=== PATIENT | female | born 1940 | race Caucasian/White ===

== ENCOUNTER 2017-11-02 17:40 | Inpatient (IN) | payer OTHER ==
[~2017-11-02] VITALS: Ht 160 cm; Wt 72.0 kg
[2017-11-02 19:13] LABS: BASOPHIL (%) 0.8 % (0-1); BASOPHIL COUNT 0.1 K/uL (0-0.1); EOSINOPHIL (%) 0.6 % (0-5); EOSINOPHIL COUNT 0.1 K/uL (0-0.3); HEMATOCRIT 38.7 % (36.0-46.0); HEMOGLOBIN 14.3 G/DL (11.9-15.5); IMMATURE GRANULOCYTE (%) 0.6 % (0.0-0.7); LYMPHOCYTE (%) 20.6 % (15-42); LYMPHOCYTE COUNT 2.5 K/uL (1.0-2.8); MCH 32.9 PG (29.0-34.0); MCV 89.2 FL (83-99); MONOCYTE (%) 7.8 % (3-12); MONOCYTE COUNT 0.9 K/uL (0-0.8); NEUTROPHIL (%) 69.6 % (45-76); NEUTROPHIL COUNT 8.4 K/uL (1.8-6.4); PLATELET COUNT 168 K/uL (156-360); RBC DIS.WIDTH-CV 12.7 % (11.8-14.6); RBC DIS.WIDTH-SD 41.1 % (39-53); RED BLOOD COUNT 4.34 M/uL (3.80-5.20)
[2017-11-02 19:25] LABS: CHLORIDE 100 mEq/L (99-109)
[2017-11-02 19:26] LABS: POTASSIUM 3.2 mEq/L (3.7-5.4); SODIUM 135 mEq/L (136-147)
[2017-11-02 19:28] LABS: GLUCOSE 278 mg/dL (70-99); TOTAL PROTEIN 7.8 g/dL (6.4-8.3)
[2017-11-02 19:30] LABS: TOTAL BILIRUBIN 0.7 mg/dL (0.0-1.0)
[2017-11-02 19:31] LABS: ALKALINE PHOSPHATASE 107 IU/L (3-129)
[2017-11-02 19:32] LABS: GFR ESTIMATE (CALCULATED) 58 mL/min/
[2017-11-02 19:33] LABS: AST (GOT) 27 IU/L (2-34); UREA NITROGEN (BUN) 19 mg/dL (9-23)
[2017-11-02 19:34] LABS: ALT (GPT) 30 IU/L (3-49)
[2017-11-02 19:35] LABS: LIPASE 43 U/L (1.0-51.0)
[2017-11-02 19:37] LABS: TROP-I INTERPRETATION NEGATIVE; TROPONIN-I 0.01 ng/mL (0.0-0.30)
[2017-11-02 20:10] LABS: APPEARANCE CLOUDY ((CLEAR)); BILIRUBIN NEGATIVE; BLOOD SMALL; COLOR AMBER ((YELLOW)); GLUCOSE (STRIP) >=500; KETONES NEGATIVE; LEUKOCYTES LARGE; NITRITE POSITIVE; PROTEIN (STRIP) 30; SPECIFIC GRAVITY 1.015 (1.000-1.030); UROBILINOGEN 0.2 MG/DL (0.2-1.0)
[2017-11-02 20:44] LABS: WHITE BLOOD CELLS TNTC /HPF (0-5)
[2017-11-02 20:45] LABS: BACTERIA 2+ /HPF; EPITHELIAL CELLS 2+ /HPF; MUCUS NONE SEEN /LPF; UCUL ADDED? YES
[2017-11-02 22:30] LABS: CREATINE KINASE 120 IU/L (1-294)
[2017-11-03 00:49] VITALS: BP 142/76
[2017-11-03 06:20] LABS: CHLORIDE 106 MEQ/L (99-109); CREATININE 0.7 MG/DL (0.6-1.3); GFR ESTIMATE (CALCULATED) > 59 mL/min/; GLUCOSE 189 mg/dL (70-99); HEMATOCRIT 34.1 % (36.0-46.0); MCH 31.9 PG (29.0-34.0); MCHC 34.9 G/DL (30.0-36.0); MCV 91.4 FL (83-99); PLATELET COUNT 141 K/uL (156-360); POTASSIUM 3.6 MEQ/L (3.7-5.4); RBC DIS.WIDTH-CV 12.9 % (11.8-14.6); RBC DIS.WIDTH-SD 42.5 % (39-53); RED BLOOD COUNT 3.73 M/uL (3.80-5.20); SODIUM 139 MEQ/L (136-147); UREA NITROGEN (BUN) 14 mg/dL (9-23); WHITE BLOOD COUNT 9.2 K/uL (4.1-10.2)
[2017-11-03 06:21] LABS: BASOPHIL COUNT 0.1 K/uL (0-0.1); EOSINOPHIL (%) 1.5 % (0-5); EOSINOPHIL COUNT 0.1 K/uL (0-0.3); IMMATURE GRANULOCYTE (%) 0.3 % (0.0-0.7); LYMPHOCYTE COUNT 3.2 K/uL (1.0-2.8); MONOCYTE (%) 10.9 % (3-12); NEUTROPHIL (%) 51.3 % (45-76); NEUTROPHIL COUNT 4.7 K/uL (1.8-6.4)
[2017-11-03 06:23] LABS: HEMOGLOBIN 11.9 G/DL (11.9-15.5)
[2017-11-03 07:37] VITALS: BP 126/60
[2017-11-03 11:23] LABS: HEMOGLOBIN A1c (GLYCOHEMOGLOB) 8.3 % (Below 5.7)
[2017-11-03 13:15] LABS: POTASSIUM 3.3 MEQ/L (3.7-5.4)
[2017-11-03 16:18] LABS: THYROTROPIN (TSH) 3.6 MIU/L (0.4-5.5)
[2017-11-04 00:19] VITALS: BP 140/58
[2017-11-04 12:04] LABS: FOLIC ACID (FOLATE) 2.4 NG/ML (5.0-22.0)
[2017-11-04 13:49] LABS: C DIFF TOXIN NEGATIVE (NEGATIVE)
[2017-11-05 00:01] VITALS: BP 153/63
[2017-11-05 07:42] VITALS: BP 125/62
[2017-11-05 23:41] VITALS: BP 128/66
[2017-11-06 07:51] VITALS: BP 158/72
[2017-11-06 15:26] VITALS: BP 122/59
[2017-11-06 23:41] VITALS: BP 133/63
[2017-11-07 08:00] VITALS: BP 126/65
[2017-11-07 14:00] LABS: BASOPHIL (%) 0.8 % (0-1); BASOPHIL COUNT 0.1 K/uL (0-0.1); EOSINOPHIL (%) 1.5 % (0-5); EOSINOPHIL COUNT 0.2 K/uL (0-0.3); HEMATOCRIT 36.3 % (36.0-46.0); HEMOGLOBIN 12.9 G/DL (11.9-15.5); IMMATURE GRANULOCYTE (%) 0.2 % (0.0-0.7); LYMPHOCYTE (%) 21.4 % (15-42); LYMPHOCYTE COUNT 2.6 K/uL (1.0-2.8); MCH 32.6 PG (29.0-34.0); MCHC 35.5 G/DL (30.0-36.0); MCV 91.7 FL (83-99); MONOCYTE (%) 6.8 % (3-12); MONOCYTE COUNT 0.8 K/uL (0-0.8); NEUTROPHIL (%) 69.3 % (45-76); NEUTROPHIL COUNT 8.4 K/uL (1.8-6.4); NRBC (%) 0.3 /100 WBC (0-0); RBC DIS.WIDTH-CV 13.2 % (11.8-14.6); RBC DIS.WIDTH-SD 44.4 % (39-53); RED BLOOD COUNT 3.96 M/uL (3.80-5.20); WHITE BLOOD COUNT 12.1 K/uL (4.1-10.2)
[2017-11-07 14:03] LABS: PLATELET COUNT 186 K/uL (156-360)
[2017-11-07 14:36] LABS: CHLORIDE 103 MEQ/L (99-109); CREATININE 0.8 MG/DL (0.6-1.3); GFR ESTIMATE (CALCULATED) > 59 mL/min/; GLUCOSE 163 mg/dL (70-99); SODIUM 140 MEQ/L (136-147); UREA NITROGEN (BUN) 17 mg/dL (9-23)
[2017-11-07 15:56] VITALS: BP 130/68
[2017-11-08 23:50] VITALS: BP 138/64
[2017-11-09 15:20] VITALS: BP 133/64
[2017-11-09 16:33] LABS: CHLORIDE 103 MEQ/L (99-109); CREATININE 0.7 MG/DL (0.6-1.3); GFR ESTIMATE (CALCULATED) > 59 mL/min/; GLUCOSE 137 mg/dL (70-99); POTASSIUM 3.4 MEQ/L (3.7-5.4); SODIUM 139 MEQ/L (136-147); UREA NITROGEN (BUN) 17 mg/dL (9-23)
[2017-11-11 23:21] VITALS: BP 130/87
[2017-11-12 07:31] VITALS: BP 143/62
[2017-11-12 16:55] VITALS: BP 120/68
[2017-11-12 23:52] VITALS: BP 115/56
[2017-11-13 07:55] VITALS: BP 134/63
[2017-11-13 16:02] VITALS: BP 142/63
[2017-11-13 23:31] VITALS: BP 138/60
[2017-11-14] MEDS ORDERED: GLIPIZIDE5 MG PO (14:01)
[2017-11-14] MEDS ORDERED: RISPERDAL2 MG PO (14:01)
[2017-11-14] MEDS ORDERED: FOLIC ACID1 MG PO (14:01)
[2017-11-14] MEDS ORDERED: METFORMIN HCL500 MG PO (14:01)
[2017-11-14 23:58] VITALS: BP 140/60
[2017-11-15 07:34] VITALS: BP 120/63
[2017-11-15 16:17] VITALS: BP 126/71
== END 2017-11-15 19:34 | DRG 689 ==
LOC: EME 17:40 → 5SOUTH 22:38 → EDOF 22:38 → ENRESERV 22:43 → EDOF 11-03 00:14 → 5SOUTH 11-03 00:15
PROVIDERS: Emergency Medicine; Hospitalist; Internal Medicine; Physician Assistant
PROC: 0HBRXZZ Excision of Toe Nail, External Approach (ICD-10-PCS; principal; 2017-11-02)
DX: N39.0 Urinary tract infection, site not specified (principal); G93.40 Encephalopathy, unspecified; E86.0 Dehydration; L60.2 Onychogryphosis; F25.9 Schizoaffective disorder, unspecified; R62.7 Adult failure to thrive; B96.20 Unspecified Escherichia coli [E. coli] as the cause of diseases classified elsewhere; F42.3 Hoarding disorder; E87.6 Hypokalemia; E87.2 Acidosis; E87.5 Hyperkalemia; L89.90 Pressure ulcer of unspecified site, unspecified stage; E11.51 Type 2 diabetes mellitus with diabetic peripheral angiopathy without gangrene; E11.65 Type 2 diabetes mellitus with hyperglycemia; H54.7 Unspecified visual loss; Z78.1 Physical restraint status; Z90.49 Acquired absence of other specified parts of digestive tract; Z91.14 Patient's other noncompliance with medication regimen; Z91.19 Patient's noncompliance with other medical treatment and regimen
CPT/HCPCS: 70450; 71045; 80048; 80053; 81003; 82550; 82550 91; 82607; 82746; 82948; 83036; 83605; 83690; 84132 91; 84443; 84484; 85025; 87040; 87077; 87086; 87186; 87493; 93005; 97530 GO; 99281; 99285; A6214; J0696; J1630; J1650; J1815; J7030

== ENCOUNTER 2017-11-15 16:51 | Inpatient (IN) | payer OTHER ==
[~2017-11-15] VITALS: Ht 167.6 cm; Wt 68.1 kg
[~2017-11-15 16:51] MED LIST: FOLIC ACID1 MG PO; GLIPIZIDE5 MG PO; METFORMIN HCL500 MG PO; RISPERDAL2 MG PO
[2017-11-15 19:40] VITALS: BP 160/69
[2017-11-15 20:00] VITALS: BP 160/69
[2017-11-17 07:45] VITALS: BP 117/53
[2017-11-17 10:15] LABS: FOLIC ACID (FOLATE) 4.3 NG/ML (5.0-22.0)
[2017-11-18 08:17] VITALS: BP 111/53
[2017-11-18 15:50] VITALS: BP 116/58
[2017-11-19 09:32] VITALS: BP 132/58
[2017-11-19 16:17] VITALS: BP 113/56
[2017-11-20 08:35] VITALS: BP 126/58
[2017-11-21 07:52] VITALS: BP 127/56
[2017-11-21 15:32] VITALS: BP 160/129
[2017-11-21 19:49] VITALS: BP 143/66
[2017-11-22 07:50] VITALS: BP 132/60
[2017-11-22 15:28] VITALS: BP 125/56
[2017-11-23 07:44] VITALS: BP 131/56
[2017-11-23 16:03] VITALS: BP 110/56
[2017-11-24 16:03] VITALS: BP 119/68
[2017-11-25 07:58] VITALS: BP 126/61
[2017-11-25 15:46] VITALS: BP 114/55
[2017-11-26 07:47] VITALS: BP 119/60
[2017-11-26 15:35] VITALS: BP 126/56
[2017-11-27 07:56] VITALS: BP 122/57
[2017-11-27 15:49] VITALS: BP 121/59
[2017-11-28 16:00] VITALS: BP 111/73
[2017-11-29 15:46] VITALS: BP 124/58
[2017-11-30 07:46] VITALS: BP 129/57
[2017-11-30 09:30] VITALS: BP 132/85
[2017-11-30 15:15] VITALS: BP 124/58
[2017-11-30 20:06] LABS: CANDIDA DNA PROBE NEGATIVE; GARDNERELLA DNA PROBE NEGATIVE; TRICHOMONAS DNA PROBE NEGATIVE
[2017-12-01 08:21] VITALS: BP 118/57
[2017-12-01] MEDS ORDERED: TRAZODONE HCL50 MG PO (09:58)
[2017-12-01] MEDS ORDERED: AMANTADINE100 MG PO (09:58)
[2017-12-01] MEDS ORDERED: RISPERDAL2 MG PO (09:58)
[2017-12-01] MEDS ORDERED: GLIPIZIDE5 MG PO (09:58)
[2017-12-01] MEDS ORDERED: FOLIC ACID1 MG PO (09:58)
[2017-12-01] MEDS ORDERED: METFORMIN HCL500 MG PO (09:58)
== END 2017-12-01 15:38 | disposition designated cancer center or children's hospital (05) | DRG 885 ==
LOC: 1WEST 16:51
PROVIDERS: Obstetrics & Gynecology; Psychiatry & Neurology Psychiatry
DX: F20.0 Paranoid schizophrenia (principal); F01.50 Vascular dementia, unspecified severity, without behavioral disturbance, psychotic disturbance, mood disturbance, and anxiety; N39.0 Urinary tract infection, site not specified; F42.3 Hoarding disorder; L91.8 Other hypertrophic disorders of the skin; H54.8 Legal blindness, as defined in USA; Z60.2 Problems related to living alone; Z91.14 Patient's other noncompliance with medication regimen; Z91.81 History of falling
CPT/HCPCS: 82607; 82746; 82948; 84443; 87480; 87510; 87660; G9033; J1630; J1815

== ENCOUNTER 2018-01-12 15:20 | Inpatient (IN) | payer OTHER ==
[~2018-01-12] VITALS: Ht 154.9 cm; Wt 56.9 kg
[~2018-01-12 15:20] MED LIST changes: +AMANTADINE100 MG PO; +TRAZODONE HCL50 MG PO
[2018-01-12 18:02] LABS: INTER. NORMALIZED RATIO 1.2
[2018-01-12 18:04] LABS: APPEARANCE CLOUDY ((CLEAR)); BILIRUBIN NEGATIVE; BLOOD SMALL; COLOR AMBER ((YELLOW)); GLUCOSE (STRIP) NEGATIVE; KETONES NEGATIVE; LEUKOCYTES LARGE; NITRITE NEGATIVE; PROTEIN (STRIP) 100; SPECIFIC GRAVITY 1.015 (1.000-1.030); UROBILINOGEN 0.2 MG/DL (0.2-1.0)
[2018-01-12 18:07] LABS: ALBUMIN 2.4 g/dL (3.2-4.8)
[2018-01-12 18:08] LABS: CHLORIDE 110 mEq/L (99-109); POTASSIUM 4.2 mEq/L (3.7-5.4); SODIUM 135 mEq/L (136-147)
[2018-01-12 18:10] LABS: TOTAL PROTEIN 6.1 g/dL (6.4-8.3)
[2018-01-12 18:12] LABS: TOTAL BILIRUBIN 0.3 mg/dL (0.0-1.0)
[2018-01-12 18:13] LABS: ALKALINE PHOSPHATASE 79 IU/L (3-129)
[2018-01-12 18:14] LABS: CREATININE 2.4 mg/dL (0.6-1.3); GFR ESTIMATE (CALCULATED) 21 mL/min/
[2018-01-12 18:15] LABS: HEMATOCRIT 29.6 % (36.0-46.0); HEMOGLOBIN 9.7 G/DL (11.9-15.5); MCH 33.1 PG (29.0-34.0); MCHC 32.8 G/DL (30.0-36.0); PLATELET COUNT 158 K/uL (156-360); RBC DIS.WIDTH-CV 13.2 % (11.8-14.6); RBC DIS.WIDTH-SD 48.8 % (39-53); RED BLOOD COUNT 2.93 M/uL (3.80-5.20); WHITE BLOOD COUNT 19.1 K/uL (4.1-10.2)
[2018-01-12 18:15] LABS: AST (GOT) 16 IU/L (2-34)
[2018-01-12 18:17] LABS: ALT (GPT) 17 IU/L (3-49); LIPASE 195 U/L (1.0-51.0); TROP-I INTERPRETATION NEGATIVE; TROPONIN-I 0.06 ng/mL (0.0-0.30)
[2018-01-12 18:27] LABS: GLUCOSE 438 mg/dL (70-99); UREA NITROGEN (BUN) 126 mg/dL (9-23)
[2018-01-12 18:29] LABS: RED BLOOD CELLS RARE /HPF (0-5); WHITE BLOOD CELLS 15-20 /HPF (0-5)
[2018-01-12 18:30] LABS: BACTERIA 2+ /HPF; EPITHELIAL CELLS RARE /HPF; MUCUS NONE SEEN /LPF; UCUL ADDED? YES
[2018-01-12 23:21] VITALS: BP 94/63
[2018-01-16] MEDS ORDERED: Ativan Oral Concentr SL (12:24)
[2018-01-16] MEDS ORDERED: ACETAMINOPHEN650 M4 PR (12:24)
[2018-01-16] MEDS ORDERED: MORPHINE S10 MG/5 ML SL (12:24)
== END 2018-01-16 15:40 | disposition hospice, home (50) | DRG 377 ==
LOC: EME 15:20 → EDOF 22:25 → 5EAST 22:25 → ENRESERV 22:40 → 5EAST 23:34
PROVIDERS: Emergency Medicine
DX: K92.2 Gastrointestinal hemorrhage, unspecified (principal); D64.9 Anemia, unspecified; A41.9 Sepsis, unspecified organism; N39.0 Urinary tract infection, site not specified; Z51.5 Encounter for palliative care; Z66 Do not resuscitate; N17.9 Acute kidney failure, unspecified; E86.0 Dehydration; I95.9 Hypotension, unspecified; N82.3 Fistula of vagina to large intestine; E11.9 Type 2 diabetes mellitus without complications; F20.9 Schizophrenia, unspecified; F03.90 Unspecified dementia, unspecified severity, without behavioral disturbance, psychotic disturbance, mood disturbance, and anxiety; H54.8 Legal blindness, as defined in USA; Z91.19 Patient's noncompliance with other medical treatment and regimen; Z87.891 Personal history of nicotine dependence; Z85.43 Personal history of malignant neoplasm of ovary
CPT/HCPCS: 71045; 74176; 80053; 81003; 82948; 83605; 83690; 84484; 85027; 85610; 86850; 86900; 86901; 86920; 87040; 87077; 87086; 93005; 99281; 99285; C1769; C1894; C9113; J2543; J7030